=== PATIENT | female | born 1955 | race Caucasian/White ===

== ENCOUNTER 2016-07-21 11:25 | Emergency (ER) | payer OTHER ==
[~2016-07-21 11:25] MED LIST: ADVAIR 100-501 EACH INH; ADVAIR 1001 DISK W/D IH; HYDROCODON-ACE1 EA16 PO; IBUPROFEN200 MG PO; NEXIUM20 MG PO; PROAIR; PROVENTIL HFA6.7 G1 INH; PROVENTIL17 GM IH; PROVERA10 MG PO; VALERIAN ROOT100 MG PO; ZOFRAN ODT4 MG/UDTAB PO
[2016-07-21] MEDS ORDERED: PREDNISONE20 M1 PO (13:13)
== END 2016-07-21 13:49 ==
LOC: EDMED 11:25
DX: J45.901 Unspecified asthma with (acute) exacerbation (principal); R06.4 Hyperventilation; K21.9 Gastro-esophageal reflux disease without esophagitis; Z90.49 Acquired absence of other specified parts of digestive tract
CPT/HCPCS: J7512